=== PATIENT | female | born 1940 | race African-American/Black ===

== ENCOUNTER 2018-05-06 09:32 | Observation (INO) ==
[2018-05-06] MEDS ORDERED: ACETAMINOPHEN 325 MG TABLET PO PRN (11:40)
[2018-05-06] MEDS ORDERED: ONDANSETRON 4 MG/2 ML VIAL IV PRN (11:40)
[2018-05-06] MEDS ORDERED: FUROSEMIDE 20 MG/2 ML VIAL IV PRN (11:49)
[2018-05-06] MEDS ORDERED: SODIUM CHLORIDE 0.9% 1,000 ML IV PRN (11:49)
[2018-05-06] MEDS: PANTOPRAZOLE 40 MG TABLET PO SCH (13:14)
[2018-05-06] MEDS: DOCUSATE SODIUM 100 MG CAPSULE PO SCH ×2 (13:14→21:36)
[2018-05-06 13:41] LABS: % Iron Saturation 5.2 % (18-50)
[2018-05-06 13:42] LABS: Hematocrit 25.8 VOL% (35.7-47.0); Hemoglobin 7.3 GM/DL (12.0-16.0)
[2018-05-06] MEDS ORDERED: ALBUTEROL/IPRATROPIUM 3 ML NEB RESP TX PRN (14:15)
[2018-05-06] MEDS: LEVOTHYROXINE 50 MCG TABLET PO SCH (14:34)
[2018-05-06] MEDS ORDERED: ALBUTEROL 2.5 MG/3 ML NEB RESP TX PRN (15:30)
[2018-05-06] MEDS: IPRATROPIUM 500 MCG/2.5 ML NEB RESP TX SCH (19:33)
[2018-05-06] MEDS: FORMOTEROL 20 MCG/2 ML NEB RESP TX SCH (19:33)
[2018-05-06] MEDS: BUDESONIDE 0.25 MG/2 ML NEB RESP TX SCH (19:33)
[2018-05-06] MEDS ORDERED: ATORVASTATIN 20 MG TABLET PO SCH (21:00)
[2018-05-06] MEDS ORDERED: TRAVOPROST 0.004% OPH SOLN 2.5 ML BOTTLE BOTH EYES SCH (21:00)
[2018-05-06] MEDS: METOPROLOL TARTRATE 25 MG TABLET PO SCH (21:35)
[2018-05-06] MEDS: TICAGRELOR 90 MG TABLET PO SCH (21:36)
[2018-05-07 01:53] LABS: Hematocrit 30.1 VOL% (35.7-47.0)
[2018-05-07] MEDS: LEVOTHYROXINE 50 MCG TABLET PO SCH (05:47)
[2018-05-07] MEDS: IPRATROPIUM 500 MCG/2.5 ML NEB RESP TX SCH ×3 (07:22→14:43)
[2018-05-07] MEDS: FORMOTEROL 20 MCG/2 ML NEB RESP TX SCH (07:22)
[2018-05-07] MEDS: BUDESONIDE 0.25 MG/2 ML NEB RESP TX SCH (07:23)
[2018-05-07] MEDS ORDERED: CYANOCOBALAMIN 500 MCG TABLET PO SCH (09:00)
[2018-05-07] MEDS ORDERED: NON-FORMULARY MEDICATION (Tiotropium Bromide [Spiriva Respimat] 2 PUFFS) INH SCH (09:00)
[2018-05-07] MEDS ORDERED: MONTELUKAST 10 MG TABLET PO SCH (09:00)
[2018-05-07] MEDS ORDERED: ASPIRIN EC 81 MG TABLET PO SCH (09:00)
[2018-05-07] MEDS ORDERED: FUROSEMIDE 20 MG TABLET PO SCH (09:00)
[2018-05-07] MEDS ORDERED: CHOLECALCIFEROL 1,000 UNIT TABLET PO SCH (09:00)
[2018-05-07] MEDS: PANTOPRAZOLE 40 MG TABLET PO SCH (10:08)
[2018-05-07] MEDS: TICAGRELOR 90 MG TABLET PO SCH (10:08)
[2018-05-07] MEDS: METOPROLOL TARTRATE 25 MG TABLET PO SCH (10:08)
[2018-05-07] MEDS: DOCUSATE SODIUM 100 MG CAPSULE PO SCH (10:08)
[2018-05-07 13:37] VITALS: BP 116/55
[2018-05-07] MEDS ORDERED: FERROUS SULFATE 325 MG TABLET PO SCH (21:00)
== END 2018-05-07 16:39 | disposition home or self-care (01) ==
LOC: N.4E
PROVIDERS: ADMIT Family Medicine; ATTEND Family Medicine

== ENCOUNTER 2019-10-08 11:44 | Observation (INO) ==
[2019-10-08] MEDS ORDERED: LEVOFLOXACIN INJ 750 MG in PREMIX 1 EACH IV STA (16:37)
[2019-10-08] MEDS ORDERED: ALBUTEROL/IPRATROPIUM 3 ML NEB RESP TX STA (16:37)
[2019-10-08] MEDS ORDERED: methylPREDNISolone SOD SUC 40 MG/1 ML VIAL IV STA (16:37)
[2019-10-08 16:57] LABS: Basophils # 0.1 10*3/uL (0.0-0.2); Basophils % 0.6 % (0.0-0.8); Eosinophils # 0.3 10*3/uL (0.0-0.87); Eosinophils % 3.3 % (0.00-10.9); Hematocrit 41.4 VOL% (35.7-47.0); Hemoglobin 13.3 GM/DL (12.0-16.0); Immature Granulocytes % 0.2 %; Immature Granulocytes Absolute 0.02 #; Lymphocytes # 2.3 10*3/uL (1.4-4.0); Lymphocytes % 23.3 % (21.3-54.2); Mean Corpuscular HGB Conc 32.1 GM/DL (32-36); Mean Corpuscular Volume 85.2 FL (87-102); Mean Platelet Volume 9.8 FL (9.6-12.0); Monocytes % 6.8 % (1.7-12.7); Neutrophils % 65.8 % (38.7-73.9); Platelet Count 262 T/CUMM (130-400); Red Blood Count 4.86 MC/CUMM (3.8-5.5); Red Cell Distribution Width 16.7 % (9.3-17.3); White Blood Count 9.9 T/CUMM (4-12)
[2019-10-08] MEDS ORDERED: ONDANSETRON 4 MG/2 ML VIAL IV STA (17:00)
[2019-10-08] MEDS ORDERED: ONDANSETRON 4 MG/2 ML VIAL ONE (17:02)
[2019-10-08 17:14] LABS: Calcium 9.4 MG/DL (8.5-10.1); Osmolality,Calculated 278.4 MOS/KG (273-304)
[2019-10-08] MEDS ORDERED: ACETAMINOPHEN 325 MG TABLET PO PRN (17:47)
[2019-10-08] MEDS ORDERED: ONDANSETRON 4 MG/2 ML VIAL IV PRN (17:47)
[2019-10-08] MEDS: ALBUTEROL/IPRATROPIUM 3 ML NEB RESP TX SCH ×2 (20:20→22:59)
[2019-10-08] MEDS: METOPROLOL TARTRATE 25 MG TABLET PO SCH (21:40)
[2019-10-08] MEDS: ENOXAPARIN 40 MG/0.4 ML SYRINGE SUBCUT SCH (21:40)
[2019-10-08] MEDS: DOCUSATE SODIUM 100 MG CAPSULE PO SCH (21:40)
[2019-10-08] MEDS: TRAVOPROST 0.004% OPH SOLN 2.5 ML BOTTLE BOTH EYES SCH (22:07)
[2019-10-09] MEDS: ALBUTEROL/IPRATROPIUM 3 ML NEB RESP TX SCH ×5 (03:04→20:11)
[2019-10-09] MEDS: LEVOTHYROXINE 50 MCG TABLET PO SCH (05:33)
[2019-10-09] MEDS: methylPREDNISolone SOD SUC 40 MG/1 ML VIAL IV SCH ×2 (05:39→08:48)
[2019-10-09] MEDS: MONTELUKAST 10 MG TABLET PO SCH (08:47)
[2019-10-09] MEDS: METOPROLOL TARTRATE 25 MG TABLET PO SCH ×2 (08:47→20:31)
[2019-10-09] MEDS: PANTOPRAZOLE 40 MG TABLET PO SCH (08:47)
[2019-10-09] MEDS: PYRIDOXINE 100 MG TABLET PO SCH (08:48)
[2019-10-09] MEDS: ASPIRIN EC 81 MG TABLET PO SCH (08:48)
[2019-10-09] MEDS: DOCUSATE SODIUM 100 MG CAPSULE PO SCH ×2 (08:48→20:30)
[2019-10-09] MEDS ORDERED: PANTOPRAZOLE 40 MG TABLET PO SCH (09:00)
[2019-10-09] MEDS ORDERED: NON-FORMULARY MEDICATION (Umeclidinium [Incruse Ellipta] 1 PUFF) INH SCH (09:00)
[2019-10-09] MEDS ORDERED: LEVOFLOXACIN INJ 750 MG in PREMIX 1 EACH IV SCH (09:00)
[2019-10-09] MEDS: traMADol 50 MG TABLET PO PRN (14:01)
[2019-10-09 14:56] LABS: Rheumatoid Factor < 15 IU/ML (<15); Uric Acid 8.5 MG/DL (2.6-6.0)
[2019-10-09] MEDS: COLCHICINE 0.6 MG CAPSULE PO SCH (20:30)
[2019-10-09] MEDS: cephALEXin 500 MG CAPSULE PO SCH (20:30)
[2019-10-09] MEDS: ENOXAPARIN 40 MG/0.4 ML SYRINGE SUBCUT SCH (20:31)
[2019-10-09] MEDS: TRAVOPROST 0.004% OPH SOLN 2.5 ML BOTTLE BOTH EYES SCH (20:31)
[2019-10-10] MEDS: ALBUTEROL/IPRATROPIUM 3 ML NEB RESP TX SCH ×4 (00:46→11:12)
[2019-10-10] MEDS: LEVOTHYROXINE 50 MCG TABLET PO SCH (06:30)
[2019-10-10 07:50] VITALS: BP 120/61
[2019-10-10] MEDS: cephALEXin 500 MG CAPSULE PO SCH (08:50)
[2019-10-10] MEDS: METOPROLOL TARTRATE 25 MG TABLET PO SCH (08:50)
[2019-10-10] MEDS: ASPIRIN EC 81 MG TABLET PO SCH (08:50)
[2019-10-10] MEDS: MONTELUKAST 10 MG TABLET PO SCH (08:50)
[2019-10-10] MEDS: DOCUSATE SODIUM 100 MG CAPSULE PO SCH (08:50)
[2019-10-10] MEDS: PYRIDOXINE 100 MG TABLET PO SCH (08:51)
[2019-10-10] MEDS: COLCHICINE 0.6 MG CAPSULE PO SCH (08:51)
[2019-10-10] MEDS: traMADol 50 MG TABLET PO PRN (09:00)
[2019-10-10] MEDS ORDERED: predniSONE 20 MG TABLET PO SCH (09:00)
[2019-10-10] MEDS: PANTOPRAZOLE 40 MG TABLET PO SCH (11:38)
== END 2019-10-10 11:30 | disposition home or self-care (01) ==
LOC: N.ED 11:44 → N.EDINP 17:47 → INTOOBSV 17:47 → N.5E 18:25 → N.2E 18:38
PROVIDERS: ADMIT Family Medicine; ATTEND Family Medicine

== ENCOUNTER 2022-03-08 13:09 | Observation (INO) ==
[2022-03-08 14:15] LABS: Basophils # 0.1 10*3/uL (0.0-0.2); Basophils % 0.6 % (0.0-0.8); Eosinophils # 0.3 10*3/uL (0.0-0.87); Eosinophils % 2.8 % (0.00-10.9); Hematocrit 42.7 VOL% (35.7-47.0); Hemoglobin 13.3 GM/DL (12.0-16.0); Immature Granulocytes % 0.4 %; Immature Granulocytes Absolute 0.04 #; Lymphocytes # 1.4 10*3/uL (1.4-4.0); Lymphocytes % 13.4 % (21.3-54.2); Mean Corpuscular HGB Conc 31.1 GM/DL (32-36); Mean Corpuscular Volume 84.9 FL (87-102); Mean Platelet Volume 9.4 FL (9.6-12.0); Monocytes # 0.4 10*3/uL (0.11-0.8); Monocytes % 3.6 % (1.7-12.7); Neutrophils % 79.2 % (38.7-73.9); Platelet Count 300 T/CUMM (130-400); Red Blood Count 5.03 MC/CUMM (3.8-5.5); Red Cell Distribution Width 15.5 % (9.3-17.3); White Blood Count 10.3 T/CUMM (4-12)
[2022-03-08] MEDS ORDERED: methylPREDNISolone SOD SUC 125 MG/2 ML VIAL IV STA (14:25)
[2022-03-08 14:26] LABS: INR 0.9; PT Patient Result 10.2 SECS (10.5-12.0); Partial Thromboplastin Time 23.4 SECS (23.8-32.1)
[2022-03-08 14:35] LABS: Alanine Aminotransferase 22 U/L (13-56); Albumin 3.3 G/DL (3.4-5.0); Alkaline Phosphatase 105 U/L (45-117); Aspartate Amino Transferase 14 U/L (0-37); Bilirubin,Total < 0.39 MG/DL (0.20-1.00); Blood Urea Nitrogen 15 MG/DL (7-18); Calcium 9.6 MG/DL (8.5-10.1); Carbon Dioxide 27 MMOL/L (21-32); Chloride 107 MMOL/L (98-107); Glucose 166 MG/DL (74-106); Osmolality,Calculated 283.4 MOS/KG (273-304); Potassium 3.5 MMOL/L (3.5-5.1); Sodium 140 MMOL/L (136-145); Total Protein 7.5 G/DL (6.4-8.2)
[2022-03-08] MEDS ORDERED: ENOXAPARIN 100 MG/ML SYRINGE SUBCUT STA (16:09)
[2022-03-08 17:11] LABS: Thyroid Stimulating Hormone 3.68 uIU/ml (0.358-3.74)
[2022-03-08] MEDS ORDERED: MORPHINE 2 MG/1 ML SYRINGE IV PRN (19:01)
[2022-03-08] MEDS ORDERED: ONDANSETRON 4 MG/2 ML VIAL IV PRN (19:01)
[2022-03-08] MEDS ORDERED: ACETAMINOPHEN 325 MG TABLET PO PRN (19:01)
[2022-03-08] MEDS ORDERED: PANTOPRAZOLE 40 MG TABLET PO PRN (20:34)
[2022-03-08] MEDS ORDERED: ALBUTEROL 2.5 MG/3 ML NEB RESP TX PRN (20:34)
[2022-03-08] MEDS: methylPREDNISolone SOD SUC 40 MG/1 ML VIAL IV SCH (21:13)
[2022-03-08] MEDS: DOCUSATE SODIUM 100 MG CAPSULE PO SCH (21:14)
[2022-03-08] MEDS: METOPROLOL TARTRATE 25 MG TABLET PO SCH (21:14)
[2022-03-08] MEDS: NON-FORMULARY MEDICATION (Fluticasone-Umeclidin-Vilanter [Trelegy Ellipta] 100-62.5-25 mcg INH SCH (21:30)
[2022-03-08] MEDS: TRAVOPROST 0.004% OPH SOLN 2.5 ML BOTTLE BOTH EYES SCH (21:30)
[2022-03-09 04:38] LABS: Basophils % 0.1 % (0.0-0.8); Hematocrit 41.8 VOL% (35.7-47.0); Hemoglobin 13.3 GM/DL (12.0-16.0); Immature Granulocytes % 0.3 %; Immature Granulocytes Absolute 0.03 #; Lymphocytes % 9.3 % (21.3-54.2); Mean Corpuscular HGB Conc 31.8 GM/DL (32-36); Mean Corpuscular Volume 83.9 FL (87-102); Mean Platelet Volume 9.6 FL (9.6-12.0); Monocytes % 0.3 % (1.7-12.7); Platelet Count 289 T/CUMM (130-400); Red Blood Count 4.98 MC/CUMM (3.8-5.5); Red Cell Distribution Width 15.3 % (9.3-17.3); White Blood Count 10.9 T/CUMM (4-12)
[2022-03-09] MEDS: methylPREDNISolone SOD SUC 40 MG/1 ML VIAL IV SCH ×2 (04:51→13:13)
[2022-03-09 04:54] LABS: Calcium 9.6 MG/DL (8.5-10.1); Osmolality,Calculated 290.1 MOS/KG (273-304); Potassium 4.3 MMOL/L (3.5-5.1)
[2022-03-09] MEDS: ASPIRIN EC 81 MG TABLET PO SCH (08:20)
[2022-03-09] MEDS: DOCUSATE SODIUM 100 MG CAPSULE PO SCH ×2 (08:20→21:26)
[2022-03-09] MEDS: PANTOPRAZOLE 40 MG TABLET PO SCH (08:21)
[2022-03-09] MEDS: MONTELUKAST 10 MG TABLET PO SCH (08:21)
[2022-03-09] MEDS: METOPROLOL TARTRATE 25 MG TABLET PO SCH ×2 (08:21→21:26)
[2022-03-09] MEDS: ENOXAPARIN 40 MG/0.4 ML SYRINGE SUBCUT SCH (08:23)
[2022-03-09] MEDS: NON-FORMULARY MEDICATION (Fluticasone-Umeclidin-Vilanter [Trelegy Ellipta] 100-62.5-25 mcg INH SCH ×2 (08:35→21:26)
[2022-03-09] MEDS ORDERED: ALBUTEROL 2.5 MG/3 ML NEB RESP TX SCH (11:00)
[2022-03-09] MEDS: ALBUTEROL 2.5 MG/3 ML NEB RESP TX SCH ×2 (13:40→19:00)
[2022-03-09] MEDS: TRAVOPROST 0.004% OPH SOLN 2.5 ML BOTTLE BOTH EYES SCH (21:26)
[2022-03-10 05:22] LABS: Basophils % 0.1 % (0.0-0.8); Hematocrit 38.7 VOL% (35.7-47.0); Hemoglobin 12.4 GM/DL (12.0-16.0); Immature Granulocytes % 0.5 %; Immature Granulocytes Absolute 0.12 #; Lymphocytes # 1.8 10*3/uL (1.4-4.0); Lymphocytes % 8.3 % (21.3-54.2); Mean Corpuscular Volume 84.9 FL (87-102); Mean Platelet Volume 10.1 FL (9.6-12.0); Monocytes % 4.4 % (1.7-12.7); Neutrophils % 86.7 % (38.7-73.9); Platelet Count 298 T/CUMM (130-400); Red Blood Count 4.56 MC/CUMM (3.8-5.5); Red Cell Distribution Width 15.4 % (9.3-17.3); White Blood Count 22.1 T/CUMM (4-12)
[2022-03-10 05:40] LABS: Calcium 9.9 MG/DL (8.5-10.1); Osmolality,Calculated 284.5 MOS/KG (273-304); Potassium 4.4 MMOL/L (3.5-5.1)
[2022-03-10 05:49] LABS: Lymphocytes 10 % (20-55); Platelet Estimate Adequate; Total Cells Counted 100
[2022-03-10] MEDS: ALBUTEROL 2.5 MG/3 ML NEB RESP TX SCH ×2 (07:08)
[2022-03-10] MEDS: ASPIRIN EC 81 MG TABLET PO SCH (08:06)
[2022-03-10] MEDS: DOCUSATE SODIUM 100 MG CAPSULE PO SCH (08:06)
[2022-03-10] MEDS: METOPROLOL TARTRATE 25 MG TABLET PO SCH (08:07)
[2022-03-10] MEDS: PANTOPRAZOLE 40 MG TABLET PO SCH (08:07)
[2022-03-10] MEDS: MONTELUKAST 10 MG TABLET PO SCH (08:07)
[2022-03-10] MEDS: ENOXAPARIN 40 MG/0.4 ML SYRINGE SUBCUT SCH (08:07)
[2022-03-10] MEDS: NON-FORMULARY MEDICATION (Fluticasone-Umeclidin-Vilanter [Trelegy Ellipta] 100-62.5-25 mcg INH SCH (08:39)
[2022-03-10] MEDS ORDERED: ROSUVASTATIN 20 MG TABLET PO SCH (09:00)
[2022-03-10] MEDS ORDERED: methylPREDNISolone SOD SUC 40 MG/1 ML VIAL IV ONE (12:02)
[2022-03-10 12:15] VITALS: BP 144/67
[2022-03-11] MEDS ORDERED: LEVOTHYROXINE 25 MCG TABLET PO SCH (09:00)
== END 2022-03-10 12:50 | disposition home health service (06) ==
LOC: N.EDINP 13:09 → N.ED 13:09 → N.CC 18:29
PROVIDERS: ADMIT Family Medicine; ATTEND Family Medicine